=== PATIENT | male | born 1965 | race Caucasian/White ===

== ENCOUNTER → 2025-02-26 | Outpatient (CLI) | payer OTHER ==
[~2025-02-26] MED LIST: AUGMENTIN XR 101 TER PO; MOTRIN800 MG PO
== END | disposition home or self-care (01) ==
LOC: US 09:39
PROVIDERS: ATTEND Nurse Practitioner Family
DX: K76.0 Fatty (change of) liver, not elsewhere classified (principal); R16.0 Hepatomegaly, not elsewhere classified; R94.5 Abnormal results of liver function studies